=== PATIENT | female | born 1940 | race Caucasian/White ===

== ENCOUNTER 2016-12-14 05:37 | Day surgery (SDC) | payer MEDICARE ==
[~2016-12-14] VITALS: Ht 167.6 cm; Wt 60.8 kg
[2016-12-14] VITALS (10 sets, daily range): BP systolic 139–160; BP diastolic 54–73; PULSE 54–67; RESP 9–17; O2SAT 96–100
[~2016-12-14 05:37] MED LIST: ASPI-973 PO; Acetaminophen IV 1,000 MG in IV Premix 1 EACH IV ONE; CeFAZolin 2 Gm/50 mL D5W IV Premix IV ONE; DOCU240C41 PO; ESTR42.52 VG; IRON18TA PO; LACT1TAB12 PO; LISI-571 PO; Lactated Ringer's 1,000 ML IV ONE; MULT-1018 PO; POTA99TA7 PO; PROP20TA5 PO; SIMV40TA5 PO; TRAM50TA2 PO; calcium; cranberry; vitamin d2
[2016-12-14] MEDS ORDERED: Dexamethasone 4 mg/mL Inj ONE (05:38)
[2016-12-14] MEDS ORDERED: Ondansetron 2 mg/mL 2 mL Inj ONE (05:38)
[2016-12-14] MEDS ORDERED: Propofol 10,000 mCg/mL 20 mL Inj ONE (05:38)
[2016-12-14] MEDS ORDERED: fentaNYL-PF 50 mCg/mL 2 mL Inj ONE (05:38)
[2016-12-14] MEDS ORDERED: CeFAZolin Inj 2 gm / 50mL D5W IV ONE (05:46)
[2016-12-14] MEDS ORDERED: Lactated Ringer's 1,000 ML IV ONE (06:06)
--- NOTE | 2016-12-14 06:42 | PCM.HPANE ---
Patient Data Surgeon Admitting Provider: Attending Provider:Siobhan Wynn MD Primary Care Physician:Gaston Fatima MD Other Provider:Malena Torres Anesthesia Reason for Visit Hydronephrosis With Ureteropelvic Junction Obstruc Ht/WT & BMI Height (Feet): 5 Height (Inches): 6 Weight (Kilograms): 60.78 Body Mass Index 21.00 Allergies Coded Allergies: No Known Allergies (Verified , 04/13/16) Past Anesthesia History Anesthesia History: Denies:: Anesthesia Reactions, Fam Anesthesia Reaction, Fam Malignant Hypertherm, Malignant Hyperthermia Diabetes History Hx Diabetes?: No MRSA MRSA: No Medications Blood Thinner: Aspirin Hypertension Medication: Yes Home Meds Incl Beta Valerie: Yes (propranodal 20 mg bid) Date Beta Valerie Taken: December 14, 2016 Time Beta Valerie Taken: 449 Reported Medications Propranolol HCl 20 Mg Pnndbn86 Mg PO BID 90 Days Ref 0 12/08/16 Lactobacillus Cmb#7/Fos/Inulin (Probiotic Complex Tablet)1 Each Tablet1 Each PO DAILY 12/08/16 Potassium 99 Mg Difdtx95 Mg PO Q2DAY 12/08/16 Multivitamin (Multi Vitamin Daily)1 Each Tablet1 Each PO DAILY 30 Days Ref 0 12/08/16 Iron 18 Mg Qkbzpq93 Mg PO Q2DAY 12/08/16 [cranberry] No Conflict CheckUnknown Dose DAILY 12/08/16 [calcium] No Conflict CheckUnknown Dose Q2DAY 12/08/16 Simvastatin 40 Mg Hcjlbf67 Mg PO HS 30 Days Ref 0 12/08/16 Aspirin 81 Mg Ahtzci62 Mg PO DAILY Ref 0 12/08/16 Lisinopril 5 Mg Tablet5 Mg PO DAILY #30 TABLET Ref 0 12/08/16 Estradiol (Estrace)42.5 Gm Cream.appl1 G VG UD PRN m2gywuh #1 TUBE Ref 0 12/08/16 Discontinued Reported Medications Tramadol 50 Mg Gddbyr15 Mg PO Q4H PRN For Pain Ref 0 12/08/16 [vitamin d2] No Conflict Check50,000 Unit WEEKLY 12/08/16 Docusate Calcium (Stool Softener)240 Mg Ylqsphd285 Mg PO PRN For Constipation 12/08/16 Tramadol 50 Mg Ldydbr95 Mg PO Q6H PRN For Pain Ref 0 04/13/16 Calcium Carbonate (Calcium)600 Mg TabletUnknown Dose PO DAILY 04/13/16 Cranberry Extract (Cranberry)200 Mg CapsuleUnknown Dose PO DAILY 04/13/16 [Potassium] No Conflict CheckUnknown Dose PO Tue,Thur,Sat 04/13/16 Ferrous Gluconate (Iron)240 Mg TabletUnknown Dose PO Mon,Wed,Fri,Sun 04/13/16 Multivitamin (Multi Vitamin Daily)1 Each Tablet1 Each PO DAILY 30 Days Ref 0 04/13/16 Cholecalciferol (Vitamin D3) (Vitamin D)50,000 Unit Cbyduvw80,000 Unit PO Wednesday04/13/16 Estradiol 0.5 Mg Tablet0.5 Mg PO Q2DAY 04/13/16 Discontinued Scripts Aspirin 81 Mg Rhbkel39 Mg PO DAILY #30 BOTTLE Ref 0 Prov:Arturo Coleman MD 04/17/16 Lisinopril 5 Mg Tablet5 Mg PO DAILY 30 Days Prov:Arturo Coleman MD 04/17/16 Atorvastatin Calcium 40 Mg Oicfdo76 Mg PO HS 30 Days Prov:Arturo Coleman MD 04/17/16 History History of ENT Problems?: Yes HEENT History: Positive for:: Cataracts (removed) Denies:: Dysphagia Sinus Problem Denture Type: None Teeth Condition: Within Normal Limits Hx of Heart Problems?: Yes Cardiovascular History: Positive for:: Hypertension Denies:: Cardiac Surgery Chest Pain Congestive Heart Failure Edema Heart Murmur Irregular Heartbeat Pacemaker Thrombophlebitis Hx of Respiratory Problem?: Yes Respiratory History: Positive for:: Chest Surgery (Right upper lobectomy ; Left lobectomy many years ago) Cough (chronic) Denies:: Asthma COPD Dyspnea Emphysema Hemoptysis Oxygen Administration Pneumonia Tuberculosis Use of C-PAP Machine Hx Neurologic Problems?: Yes Neurological History: Positive for:: TIA (03/2016) Denies:: Alzheimer's Disease CVA Dementia Dizziness Headaches Parkinson's Disease (benign essential tremor- followed by [facility]) Seizures Hx of GI Problems?: No Hx of Problems?: Yes Genitourinary History: Positive for:: Urinary Tract Infection Denies:: HX of Hemodialysis Kidney Stones (hydronephrosis current admission problem) HX of Peritoneal Dialysis: No Female Hx: Denies:: Currently (hysterectomy) Endometriosis Pelvic Inflammatory Problems with Breasts? Skin History: Denies:: History Skin Disorders? Pressure Ulcers Hx Musculoskeletal Problems?: No Musculoskeletal History: Denies:: Back Injury Joint Replacement Hx of Psycho/Social Problems?: No Psycho Social History: Denies:: Anxiety Bipolar Disorder Hx Depression Suicide Attempt Hx Surgeries?: Yes (Lung03/19/16, bladder, appy, hysterectomy, c section) Hx Any Other Health Problems?: Yes Other History: Positive for:: Cancer (skin cancer left leg removed) Hospitalization (Surgical, UTI/kidney infections) Denies:: Thyroid Disease History Blood Transfusions: Positive for:: Blood Transfusions Denies:: Blood Transfuse Reaction Hx Diabetes: No Hx Alcohol Use: NoHx Substance Use: No Smoking Status: Never Smoker Have You Smoked inLast 12 mo: No Stop/Bang S-Snoring: Do You Snore Loudly: No T-Tired: feel tired, fatigued: Yes O-Obsered: Observed not breath: No P-Blood Pressure: treated: Yes B- Body Mass Index > 35 kg/m2: No A- Age over 50: Yes N- Neck Large Circumference: No G- Gender Male: No ARTURO Total Score: 3 ARTURO Risk Assessment: Low Risk, <3 Yes Risk Assessment Category Category 1A: Patient has history of documented sleep apnea, and HAS NOT received any narcotic, sedative or anesthesia administration during this stay. Category 1B: Patient has history of documented sleep apnea, and HAS received any narcotic , sedative or anesthesia administration during this stay Category 2: Patient has SUSPECTED Obstructive Sleep Apnea, and HAS received any narcotic , sedative or anesthesia administration during this stay. Category 3: Patient has SUSPECTED Obstructive Sleep Apnea and HAS NOT received narcotic, sedative or anesthesia administration during this stay. Category 4: Outpatient in Procedural Areas with known sleep apnea or who screen positive for High Risk via the STOP/BANG questionnaire. Exam Exam Vital Signs Vital Signs Date Time Temp Pulse Resp B/P Pulse Ox O2 Delivery O2 Flow Rate FiO2 12/14/16 06:12 36 58 17 145/73 99 Room Air General Appearance: Alert, Oriented X3, Cooperative, No Acute Distress HEENT/AIRWAY: MP 2 Lungs: Clear to Auscultation, Normal Air Movement Heart: Exam Unremarkable, Regular Rate/Rhythm, No Murmurs/Rubs/Gallops Meds/Labs/Diagnostics Admission Meds Current Medications Lactated Ringer's (Lr) 1,000 ml @ ud STK-MED ONCE IV Last administered on 12/14t 06:06; Start 12/14/16 at 06:06; Stop 12/14/16 at 06:07; Status DC Plan Impression Patient chart reviewed, patient interviewed and anesthestic plan with risks, benefits, and alternatives discussed, and informed consent obtained. NPO per Anesth. Guidelines: Yes ASA Physical Status: ASA2 Mod Systemic Disease Anesthetic Plan: GA Bene/Risks/Altern/Consents: Yes HP Complete Prior to Induction: Yes Sara Tolentino MD December 14, 2016 06:42
[2016-12-14] MEDS ORDERED: Lactated Ringer's 500 ML IV PRN (07:43)
[2016-12-14] MEDS ORDERED: Lactated Ringer's 1,000 ML IV SCH (07:43)
[2016-12-14] MEDS ORDERED: Ondansetron 2 mg/mL 2 mL Inj IVPUSH PRN (07:45)
[2016-12-14] MEDS ORDERED: MetoCLOpramide 5 mg/mL 2 mL Inj IVPUSH PRN (07:45)
[2016-12-14] MEDS ORDERED: Labetalol 5 mg/mL 4 mL Inj IV PRN (07:45)
[2016-12-14] MEDS ORDERED: Atropine 0.4 mg/mL Inj IVPUSH PRN (07:45)
[2016-12-14] MEDS ORDERED: Phenylephrine 10,000 mCg/mL Inj IVPUSH PRN (07:45)
[2016-12-14] MEDS ORDERED: fentaNYL-PF 50 mCg/mL 2 mL Inj IVPUSH PRN (07:45)
[2016-12-14] MEDS ORDERED: Dexamethasone 4 mg/mL Inj IVPUSH PRN (07:45)
[2016-12-14] MEDS ORDERED: HYDROmorphone 1 mg/mL Inj IVPUSH PRN (07:45)
[2016-12-14] MEDS ORDERED: EPHEDrine Sulfate 50 mg/mL Inj IVPUSH PRN (07:45)
[2016-12-14] MEDS ORDERED: Iopamidol-300 50 mL Inj IV ONE (07:56)
[2016-12-14] MEDS ORDERED: Belladonna Alk-Opium 60 mg Rectal Suppository RECTAL ONE ×2 (08:03→08:07)
--- NOTE | 2016-12-14 08:31 | PCM.ANEP1 ---
Post Anesthesia PACU Phase 1 Assessment Vital Signs Vital Signs Date Time Temp Pulse Resp B/P Pulse Ox O2 Delivery O2 Flow Rate FiO2 12/14/16 08:25 62 10 152/54 100 Room Air 12/14/16 08:21 67 11 149/58 100 Simple Mask 8 12/14/16 08:18 36.2 66 16 160/67 100 Simple Mask 8 12/14/16 06:12 36 58 17 145/73 99 Room Air Anesthetic Administered: GA Level of Alertness: Awake, talking NIX's with Equal Strength: Yes Pain: No Nausea or Vomiting: No CV Function and Hydration: Yes Airway Device: Oxygen Delivery: Simple Mask Lungs: Clear to Auscultation Dermatome Level: Full Sensation PACU Phase 2 Assessment Complications: No Follow up Care: No Patient Instructions Provided: N/A Sara Tolentino MD December 14, 2016 08:31
--- NOTE | 2016-12-14 19:26 | OP ---
[address] [address] OPERATIVE REPORT PATIENT: IVY JO : 1940 MR#: [id number] ADMIT: 12/14/2016 JOB ID: [id number] DATE OF SURGERY: 12/14/2016 SURGEON: Siobhan Wynn MD PREOPERATIVE DIAGNOSIS(ES): Recurrent left ureteropelvic junction obstruction. POSTOPERATIVE DIAGNOSIS(ES): Recurrent left ureteropelvic junction obstruction. OPERATION PERFORMED: 1. Cystoscopy, left retrograde pyelogram. 2. Dilation of left ureteropelvic junction (balloon pyeloplasty). ANESTHESIOLOGIST: . ANESTHESIA: General. FINDINGS: Bladder urothelium was normal. Orifices were normal position bilaterally. Left ureteral caliber was normal except for about a 2 cm segment of relative narrowing with a high insertion in the superior-medial aspect of the renal pelvis. Following dilation, a 7 x 22-32 multilength stent was positioned satisfactorily. PROCEDURE SUMMARY: The patient was positioned supine and was administered general anesthesia. She was then repositioned in semi-lithotomy, and the lower abdomen, genitalia, and groin were prepped and draped in sterile fashion. The 22-[place]ic panendoscope was then passed to the lower urinary tract with the findings as described above. Next, a 4-[place]ic whistle-tip catheter was utilized and a retrograde pyelography was performed with the findings as described above. Next, a 0.35 Glidewire was advanced into the left collecting system under direct and fluoroscopic guidance. Over this, an 18-Green[place]ic x 6 cm balloon dilating catheter was advanced over the wire, and then was positioned across the left ureteropelvic junction under fluoroscopic guidance. The balloon was then inflated to 18 atmospheres and held in position for 5 minutes, after which the balloon was deflated, the balloon was backloaded off the Glidewire and now a 7-Green[place]ic x 22-32 cm variable length stent was selected. This was advanced over the Glidewire satisfactorily under direct and fluoroscopic guidance. NO RETRIEVAL LINE WAS LEFT ATTACHED. The bladder was then drained completely. All instrumentation was removed. The patient was repositioned in supine, was then awakened, transferred to [facility], and transported to recovery in stable condition.
== END 2016-12-14 23:59 | disposition home or self-care (01) ==
LOC: SAS 05:37
PROVIDERS: ATTEND Specialist
DX: N13.5 Crossing vessel and stricture of ureter without hydronephrosis (principal); I10 Essential (primary) hypertension; Z86.73 Personal history of transient ischemic attack (TIA), and cerebral infarction without residual deficits; Z87.440 Personal history of urinary (tract) infections; Z85.118 Personal history of other malignant neoplasm of bronchus and lung; Z79.82 Long term (current) use of aspirin
CPT/HCPCS: 52345; 74420; C2617; J0690; J1100; J2250; J2405; J3010; J7120; Q9967